=== PATIENT | female | born 1985 | race Caucasian/White ===

== ENCOUNTER 2016-11-12 22:18 | Emergency (ER) | payer SELFPAY ==
[~2016-11-12] VITALS: Ht 172.7 cm; Wt 105.0 kg
[~2016-11-12 22:18] MED LIST: AZIT250T3 PO; DIFL150T PO; FLUC150T PO; ONDA8TAB8 SL; PERC10TA27 PO; TRAM1CAP21 PO
[2016-11-12 22:32] VITALS: BP 125/81; PULSE 100; RESP 16; TEMP 98.3; O2SAT 99
[2016-11-12] MEDS ORDERED: DIAZEPAM 10 MG TAB PO ONE (23:30)
[2016-11-12] MEDS ORDERED: oxyCODONE/ACETAMINOPHEN 5 MG/325 MG TAB PO ONE (23:30)
[2016-11-12] MEDS ORDERED: DEXAMETHASONE SOD PHOS 20 MG/5 ML VIAL IM ONE (23:30)
[2016-11-12] MEDS ORDERED: DIAZEPAM 5 MG TAB PO ONE (23:45)
--- NOTE | 2016-11-12 23:53 | PD ---
HPI Chief Complaint: Musculoskeletal Complaint Time Seen by Provider: 23:16 Travel History International Travel<30 days: No Contact w/Intl Traveler<30days: No Traveled to known affect area: No History of Present Illness HPI Patient is a 31-year-old female who presents to emergency room with complaints of back pain. Patient reports that 4 days ago, she slipped and fell down a few stairs and then slipped down 14 stairs. Reports no loss of consciousness. Reports that she has been having pains to her low back. Denies pains to her head or neck, reports pains to her lower thoracic as well as lumbar spine. Patient reports that she did take some left over lortab 10mg she had from a previous injury. Reports "it hasn't helped me at all." Patient has been ambulating with normal gait. Denies saddle anesthesia. Patient denies incontinence or retention of urine or stool. PFSH Past Medical History Asthma: Yes ( CHILD) Blood Disorders: No Anxiety: Yes Depression: Yes Cancer: Yes (PRECANCEROUS CELLS ON CERVIX 2004- LEEP PROCEDURE ) Cardiovascular Problems: No Diminished Hearing: No Endocrine: No GERD: Yes Genitourinary: No Headaches: Yes Immune Disorder: No Implanted Vascular Access Dvce: No Musculoskeletal: Yes Neurologic: Yes Psychiatric: Yes Reproductive: No Respiratory: Yes Immunizations Current: Yes Migraines: Yes Ulcer: Yes PNEUMOCCOCAL Vaccine (Year): 2 ?: Unknown LMP: 11/09/16 Menopausal: No : 4 Para: 2 Miscarriage: 1 : 1 Ovarian Cysts: Yes Past Surgical History Section: Yes (X1) Gynecologic Surgery: Yes (LEEP done 05/2004-Cervical biopsy-2004) Oral Surgery: Yes (EXTRACTIONS 2004) Tonsillectomy: Yes Other Surgery: Yes (LEAP 2004) Family History Family Hypercholesterolemia: Yes (mother) Social History Alcohol Use: Yes (RARELY) Tobacco Use: Yes (1 PPD) Substance Use: No Allergies-Medications (Allergen,Severity, Reaction): Coded Allergies: Erythromycin (Verified Allergy, Severe, ANAPHALAXIS, 11/12/16) ALL MYCINS Levaquin (Verified Allergy, Severe, HIVES, ANAPHALAXIS, 11/12/16) Penicillin (Verified Allergy, Severe, ANAPHALAXIS, 11/12/16) ALL CILLINS Sulfa (Verified Allergy, Severe, ANAPHALAXIS, 11/12/16) Vancomycin (Verified Allergy, Severe, ANAPHALAXIS, 11/12/16) Aleve (Verified Adverse Reaction, Severe, GI UPSET, 11/12/16) Rifampin (Verified Adverse Reaction, Intermediate, VOMITS, 11/12/16) Reported Meds & Prescriptions Reported Meds & Active Scripts Active Ibuprofen 600 Mg Tab 600 Mg PO Q6H PRN Valium (Diazepam) 10 Mg Tab 10 Mg PO BID Percocet (Oxycodone-Acetaminophen) 5-325 mg Tab 1-2 Tab PO Q6H PRN Ondansetron Odt 8 Mg Tab 8 Mg SL Q8HR Percocet (Oxycodone-Acetaminophen) 10-325 mg Tab 1 Tab PO Q4H PRN Review of Systems General / Constitutional: No: Fever Eyes: No: Visual changes HENT: No: Headaches Cardiovascular: No: Chest Pain or Discomfort Respiratory: No: Shortness of Breath Gastrointestinal: No: Nausea, Vomiting, Abdominal Pain Genitourinary: No: Urgency, Frequency, Dysuria, Incontinence, Pelvic Pain Musculoskeletal: No: Pain (low back pain) Skin: No Rash Neurologic: No: Weakness Psychiatric: No: Depression Endocrine: No: Polydipsia Hematologic/Lymphatic: No: Easy Bruising Physical Exam Narrative GENERAL: Mild distress SKIN: Focused skin assessment warm/dry. HEAD: Atraumatic. Normocephalic. EYES: Pupils equal and round. No scleral icterus. No injection or drainage. ENT: No nasal bleeding or discharge. Mucous membranes pink and moist. NECK: Trachea midline. No JVD. CARDIOVASCULAR: Regular rate and rhythm. No murmur appreciated. RESPIRATORY: No accessory muscle use. Clear to auscultation. Breath sounds equal bilaterally. GASTROINTESTINAL: Abdomen soft, non-tender, nondistended. Hepatic and splenic margins not palpable. Patient with no saddle anesthesia MUSCULOSKELETAL: No obvious deformities. No clubbing. No cyanosis. No edema. Patient with no midline tenderness to cervical or thoracic or lumbar spine, patient with b/l paraspinal tenderness to lumbar spine. NEUROLOGICAL: Awake and alert. No obvious cranial nerve deficits. Motor grossly within normal limits. Normal speech. PSYCHIATRIC: Appropriate mood and affect; insight and judgment normal. Data Data Last Documented VS Vital Signs Date Time Temp Pulse Resp B/P Pulse Ox O2 Delivery O2 Flow Rate FiO2 11/12/16 22:32 98.3 100 16 125/81 99 Orders Spine, Thoracic-Ap/Lat/Sw(3vw) (11/12/16 ) Spine, Lumbar - Ltd (Ap & Lat) (11/12/16 ) Ed Urine Pregnancytest Poc (11/12/16 23:24) Dexamethasone Inj (Decadron Inj) (11/12/16 23:30) Oxycodone-Acetamin 5-325 Mg (Percocet (11/12/16 23:30) Diazepam (Valium) (11/12/16 23:45) [facility] Medical Decision Making Medical Screen Exam Complete: Yes Emergency Medical Condition: Yes Interpretation(s) Vital Signs Date Time Temp Pulse Resp B/P Pulse Ox O2 Delivery O2 Flow Rate FiO2 11/12/16 22:32 98.3 100 16 125/81 99 Differential Diagnosis Differential includes lumbar strain, lumbar fracture, muscle strain Narrative Course 31 year old female who presents to the ER for evaluation of low back pain s/p fall 4 days ago. Patient has been ambulating with normal gait, denies incontinence of urine or bowel. Xray of thoracic spine ordered as patient has lower thoracic pain, xray of lumbar spine ordered as patient has paraspinal lumbar tenderness. Last Impressions Lumbar Spine X-Ray 11/12/16 0000 Signed Impressions: Service Date/Time: Saturday, November 12, 2016 23:49 - CONCLUSION: Levoscoliosis without fracture. Jose Luis Barahona MD thoracic spine xray: dextroscoliosis without fx patient with no acute fx's, she will follow up with orthopedic surgery and will return to ER as needed Diagnosis Primary Impression: Back pain Qualified Code: M54.5 - Acute bilateral low back pain without sciatica Patient Instructions: Narcotic given in the ED, General Instructions Additional Instructions: Please follow up with orthopedic surgeon Return to ER as needed Please do not drive or operate heavy machinery while taking narcotic pain medications Med/Other Pt SpecificInfo: Prescription(s) given Scripts Diazepam (Valium)10 Mg Tab10 Mg PO BID #20 TAB Ref 0 Prov:Kaitlin Eaton DO 11/13/16 Oxycodone-Acetaminophen (Percocet)5-325 mg Tab1-2 Tab PO Q6H PRN (PAIN) #15 TAB Ref 0 Prov:Kaitlin Eaton DO 11/13/16 Disposition: 01 DISCHARGE HOME Condition: Stable Kaitlin Eaton DO Nov 12, 2016 23:53 Kaitlin Eaton DO Nov 12, 2016 23:53
[2016-11-13] MEDS ORDERED: IBUP-232 PO (00:09)
[2016-11-13] MEDS ORDERED: PERC5TAB12 PO (00:09)
[2016-11-13] MEDS ORDERED: DIAZ10 PO (00:09)
--- NOTE | 2016-11-13 00:20 | RADRPT ---
EXAM DATE/TIME: 11/12/2016 23:59 [facility] COMPARISON: No previous studies available for comparison. INDICATIONS : Thoracic spine pain post fall. MEDICAL HISTORY : None. SURGICAL HISTORY : None. ENCOUNTER: Initial ACUITY: 4 - 6 days PAIN SCORE: 10/10 LOCATION: Bilateral thoracic spine FINDINGS: There is normal alignment of the thoracic vertebral bodies. Vertebral body height is maintained. No evidence of fracture. Dextroscoliosis. Pedicles are intact at all levels. The paravertebral reflec tions are not thickened. CONCLUSION: Dextroscoliosis without fracture. Jose Luis Barahona MD on November 13, 2016 at 0:19 Board Certified Radiologist. This report was verified electronically.
--- NOTE | 2016-11-13 00:20 | RADRPT ---
EXAM DATE/TIME: 11/12/2016 23:49 [facility] COMPARISON: No previous studies available for comparison. INDICATIONS : Lumbar spine pain post fall. MEDICAL HISTORY : None. SURGICAL HISTORY : None. ENCOUNTER: Initial ACUITY: 4 - 6 days PAIN SCORE: 10/10 LOCATION: Bilateral lumbar spine FINDINGS: Two view examination was performed. There are five non-rib bearing vertebral bodies. The vertebral bodies are in normal alignment without evidence of subluxation. Levocurvature. The disc spaces are m aintained. The pedicles are intact. Bony mineralization is normal. No fracture is identified. CONCLUSION: Levoscoliosis without fracture. Jose Luis Barahona MD on November 13, 2016 at 0:18 Board Certified Radiologist. This report was verified electronically.
[2016-11-13 00:56] VITALS: BP 147/74
[2016-11-17] MEDS ORDERED: ONDA8TAB8 SL (23:35)
[2016-12-08] MEDS ORDERED: ONDA8TAB8 SL (19:05)
[2016-12-21] MEDS ORDERED: ONDA8TAB8 SL (23:25)
[2017-01-05] MEDS ORDERED: ONDA8TAB8 SL (00:11)
== END 2016-11-13 00:59 | disposition home or self-care (01) ==
LOC: PHED 22:18
DX: M54.5 Low back pain (principal); M54.6 Pain in thoracic spine; W10.9XXA Fall (on) (from) unspecified stairs and steps, initial encounter
CPT/HCPCS: 72072; 72100; 84703; 96372; 99284; J1100

== ENCOUNTER 2017-04-10 16:05 | Emergency (ER) | payer SELFPAY ==
[~2017-04-10] VITALS: Ht 172.7 cm; Wt 105.6 kg
[~2017-04-10 16:05] MED LIST changes: -AZIT250T3 PO; +DIAZ10 PO; -DIFL150T PO; -FLUC150T PO; -ONDA8TAB8 SL; +PERC5TAB12 PO; -TRAM1CAP21 PO
[2017-04-10 16:08] VITALS: BP 121/59; PULSE 88; RESP 16; TEMP 97.8; O2SAT 100
[2017-04-10 16:30] VITALS: RESP 16; O2SAT 99
[2017-04-10] MEDS ORDERED: ZOFR8TAB PO (16:33)
--- NOTE | 2017-04-10 16:54 | PD ---
HPI Chief Complaint: Related Problem Time Seen by Provider: 16:13 Travel History International Travel<30 days: No Contact w/Intl Traveler<30days: No Traveled to known affect area: No History of Present Illness HPI This is a 31-year-old female who presents to the emergency department with bleeding and abdominal cramping in early . She's not sure how she is. Her last normal period was in January. She reports that for 3 days she's had intermittent cramping, moderate severity, worse at the left side of nonradiating associated with dark brown vaginal bleeding less than filling a pad. She had one miscarriage when she was 17 years old and she has 2 children. She denies any fevers or chills and denies any dysuria or vaginal discharge. PFSH Past Medical History Asthma: Yes ( CHILD) Blood Disorders: No Anxiety: Yes Depression: Yes Cancer: Yes (PRECANCEROUS CELLS ON CERVIX 2004- LEEP PROCEDURE ) Cardiovascular Problems: No Diminished Hearing: No Endocrine: No GERD: Yes Genitourinary: No Headaches: Yes Immune Disorder: No Implanted Vascular Access Dvce: No Medical other: Yes (interm. chronic left knee pain) Musculoskeletal: Yes Neurologic: Yes Psychiatric: Yes Reproductive: No Respiratory: Yes Immunizations Current: Yes Migraines: Yes Ulcer: Yes Tetanus Vaccination: > 5 Years Influenza Vaccination: No PNEUMOCCOCAL Vaccine (Year): 2 ?: LMP: 01/27//?? Menopausal: No : 4 Para: 2 Miscarriage: 1 : 1 Ovarian Cysts: Yes Past Surgical History Section: Yes (X1) Gynecologic Surgery: Yes (LEEP done 05/2004-Cervical biopsy-2004) Oral Surgery: Yes (EXTRACTIONS 2004) Tonsillectomy: Yes Other Surgery: Yes (LEAP 2004) Family History Family Hypercholesterolemia: Yes (mother) Social History Alcohol Use: No Tobacco Use: Yes ( -04/05 PPD) Substance Use: No Allergies-Medications (Allergen,Severity, Reaction): Coded Allergies: Sulfa (Sulfonamide Antibiotics) (Unverified Allergy, Severe, ANAPHALAXIS, 04/10/17) erythromycin base (Unverified Allergy, Severe, ANAPHALAXIS, 04/10/17) ALL MYCINS levofloxacin (Unverified Allergy, Severe, HIVES, ANAPHALAXIS, 04/10/17) penicillin G (Unverified Allergy, Severe, ANAPHALAXIS, 04/10/17) ALL CILLINS vancomycin (Unverified Allergy, Severe, ANAPHALAXIS, 04/10/17) naproxen (Unverified Adverse Reaction, Severe, GI UPSET, 04/10/17) rifampin (Unverified Adverse Reaction, Intermediate, VOMITS, 04/10/17) Reported Meds & Prescriptions Reported Meds & Active Scripts Active Percocet (Oxycodone-Acetaminophen) 10-325 mg Tab 1 Tab PO Q4H PRN Reported Zofran (Ondansetron HCl) 8 Mg Tab 8 Mg PO Q6HR PRN Review of Systems Except as stated in HPI: all other systems reviewed are Neg Physical Exam Narrative GENERAL:Well appearing, no acute distress SKIN: Focused skin assessment warm and dry. HEAD: Atraumatic. Normocephalic. EYES: Pupils equal and round. No injection or drainage. ENT: Moist mucous membranes NECK: Trachea midline. CARDIOVASCULAR: Regular rate and rhythm. No murmur appreciated. RESPIRATORY: Clear to auscultation. Breath sounds equal bilaterally. GASTROINTESTINAL: Abdomen soft, non-tender, nondistended. WHEAT WASHER: scant dark blood in the vaginal vault, no adnexal tenderness or cervical motion tenderness MUSCULOSKELETAL: No obvious deformities. NEUROLOGICAL: Awake and alert. No obvious cranial nerve deficits. Moving all extremities. PSYCHIATRIC: Appropriate mood and affect; insight and judgment normal. Data Data Last Documented VS Vital Signs Date Time Temp Pulse Resp B/P (MAP) Pulse Ox O2 Delivery O2 Flow Rate FiO2 04/10/17 19:25 78 16 112/59 (76) 100 Room Air 04/10/17 16:08 97.8 Orders Orders Ed Poc Ultrasound (04/10/17 ) Beta Hcg (Quant/Titer) (04/10/17 16:47) Complete Blood Count With Diff (04/10/17 16:47) Comprehensive Metabolic Panel (04/10/17 16:47) Urinalysis - C+S If Indicated (04/10/17 16:47) Iv Access Insert/Monitor (04/10/17 16:47) Ecg Monitoring (04/10/17 16:47) Oximetry (04/10/17 16:47) Ondansetron Inj (Zofran Inj) (04/10/17 17:00) Sodium Chloride 0.9% Flush (Ns Flush) (04/10/17 17:00) Morphine Inj (Morphine Inj) (04/10/17 17:00) Us Pelvis Preg W Transvaginal (04/10/17 ) Ed Urine Pregnancytest Poc (04/10/17 17:15) Morphine Inj (Morphine Inj) (04/10/17 18:30) Labs Laboratory Tests Test 04/10/17 17:05 04/10/17 17:10 Urine Collection Type CLEAN CATCH Urine Color YELLOW Urine Turbidity CLEAR Urine pH 6.0 Urine Specific [place] 1.010 Urine Protein NEG mg/dL Urine Glucose (UA) NEG mg/dL Urine Ketones NEG mg/dL Urine Occult Blood NEG Urine Nitrite NEG Urine Bilirubin NEG Urine Leukocyte Esterase NEG Urine Squamous Epithelial Cells 0-5 /hpf Urine Transitional Epithelial Cells 0-5 /hpf Urine Amorphous Sediment FEW Microscopic Urinalysis Comment CULT NOT INDICATED Urine Collection Time 1705 White Blood Count 9.4 TH/MM3 Red Blood Count 4.56 MIL/MM3 Hemoglobin 8.9 GM/DL Hematocrit 29.4 % Mean Corpuscular Volume 64.4 FL Mean Corpuscular Hemoglobin 19.5 PG Mean Corpuscular Hemoglobin Concent 30.3 % Red Cell Distribution Width 17.9 % Platelet Count 388 TH/MM3 Mean Platelet Volume 7.9 FL Neutrophils (%) (Auto) 51.4 % Lymphocytes (%) (Auto) 40.8 % Monocytes (%) (Auto) 6.8 % Eosinophils (%) (Auto) 0.5 % Basophils (%) (Auto) 0.5 % Neutrophils # (Auto) 4.9 TH/MM3 Lymphocytes # (Auto) 3.9 TH/MM3 Monocytes # (Auto) 0.6 TH/MM3 Eosinophils # (Auto) 0.0 TH/MM3 Basophils # (Auto) 0.0 TH/MM3 CBC Comment AUTO DIFF Differential Comment AUTO DIFF CONFIRMED Platelet Estimate NORMAL Platelet Morphology Comment NORMAL Ovalocytes 1+ Barron Cells 1+ Rouleau PRESENT Keratocytes OCC Blood Urea Nitrogen 7 MG/DL Creatinine 0.72 MG/DL Random Glucose 85 MG/DL Total Protein 7.8 GM/DL Albumin 3.8 GM/DL Calcium Level 8.4 MG/DL Alkaline Phosphatase 74 U/L Aspartate Amino Transf (AST/SGOT) 14 U/L Alanine Aminotransferase (ALT/SGPT) 16 U/L Total Bilirubin 0.3 MG/DL Sodium Level 137 MEQ/L Potassium Level 3.3 MEQ/L Chloride Level 103 MEQ/L Carbon Dioxide Level 26.7 MEQ/L Anion Gap 7 MEQ/L Estimat Glomerular Filtration Rate 94 ML/MIN Human Chorionic Gonadotropin, Quant 8943 MIU/ML MDM Medical Decision Making Medical Screen Exam Complete: Yes Emergency Medical Condition: Yes Interpretation(s) Afebrile, no tachycardia, normotensive Hemoglobin is 8.9 Hypokalemia HCG is 8943 Urinalysis is negative for infection Last 24 hours Impressions Pelvis Ultrasound 04/10/17 0000 Signed Impressions: Service Date/Time: Monday, April 10, 2017 22:29 - CONCLUSION: 1. Intrauterine gestational sac containing a yolk sac. 2. Complex mass in the right ovary; possible corpus luteal cyst. Short-term followup recommended. 3. Normal left ovary and adnexa. Edison Pantoja MD Differential Diagnosis Threatened miscarriage, incomplete miscarriage, completed miscarriage, ectopic Narrative Course This is a 31-year-old female who presents to the emergency department with abdominal discomfort and dark blood from her vagina the setting of early . She is placed in a monitor and an IV was established. She is found to be anemic which is likely chronic. HCG is 8000. Ultrasound demonstrates an intrauterine approximately 5 weeks gestation with a 4 cm right adnexal mass with no evidence of torsion. Pt is Rh + per past records. Patient was given pain control and feels a little bit better. I think she can be discharged to follow-up with her process server. I counseled her this may still reflect an early miscarriage. Diagnosis Primary Impression: Threatened miscarriage Patient Instructions: General Instructions Additional Instructions: You have been diagnosed with a threatened miscarriage. Many women who have vaginal bleeding in early go on to have normal pregnancies. However some women that have vaginal bleeding will have a miscarriage and it is important to followup with your cobol mainframe developer. If you develop severe abdominal pain, fever, persistent vomiting or inability to eat, heavy vaginal bleeding using more than one pad an hour, lightheadedness , dizziness, chest pain or shortness of breath return to the emergency department immediately. Followup with your cobol mainframe developer as soon as possible. Take Tylenol as needed for pain. You have a 4 cm mass on your right ovary which should be followed by your process server. Med/Other Pt SpecificInfo: Prescription(s) given Scripts Pnv No.111/Iron/Folate/Dha (Nestabs One Softgel) 38 Mg Iron-1 Mg-225 Mg Capsule 1 TAB PO DAILY, #30 Prov: Niecy Mendenhall MD 04/10/17 Ondansetron Odt (Zofran Odt) 4 Mg Tab 4 MG SL Q6HR Y for Nausea/Vomiting, #15 TAB 0 Refills Prov: Niecy Mendenhall MD 04/10/17 Disposition: 01 DISCHARGE HOME Condition: Stable Niecy Mendenhall MD Apr 10, 2017 16:54
[2017-04-10] MEDS ORDERED: ONDANSETRON HCL 4 MG/2 ML VIAL IVP ONE (17:00)
[2017-04-10] MEDS ORDERED: MORPHINE SULFATE 2 MG/ML INJ IV PUSH ONE ×2 (17:00→18:30)
[2017-04-10] MEDS: SODIUM CHLORIDE 0.9% FLUSH 10 ML FLUSH IV FLUSH PRN ×2 (17:22→18:34)
[2017-04-10 17:29] VITALS: BP 107/62; PULSE 89; RESP 16; O2SAT 99
[2017-04-10 17:39] LABS: AUTOMATED NEUTROPHIL # 4.9 TH/MM3 (1.8-7.7); BASOPHIL % 0.5 % (0.0-2.0); CHLORIDE 103 MEQ/L (98-107); EOSINOPHIL % 0.5 % (0.0-4.0); HEMATOCRIT 29.4 % (35.0-46.0); HEMOGLOBIN 8.9 GM/DL (11.6-15.3); LYMPH % 40.8 % (9.0-44.0); LYMPHOCYTE # 3.9 TH/MM3 (1.0-4.8); MEAN CELL VOLUME 64.4 FL (80.0-100.0); MEAN CORPUSCULAR HEMOGLOBIN 19.5 PG (27.0-34.0); MEAN CORPUSCULAR HGB CONC 30.3 % (32.0-36.0); MEAN PLATELET VOLUME 7.9 FL (7.0-11.0); MONO % 6.8 % (0.0-8.0); MONOCYTE # 0.6 TH/MM3 (0-0.9); NEUT % 51.4 % (16.0-70.0); PLATELET COUNT 388 TH/MM3 (150-450); RED BLOOD COUNT 4.56 MIL/MM3 (4.00-5.30); RED CELL DISTRIBUTION WIDTH 17.9 % (11.6-17.2); SODIUM (NA) 137 MEQ/L (136-145); WHITE BLOOD COUNT 9.4 TH/MM3 (4.0-11.0)
[2017-04-10 17:41] LABS: BILIRUBIN, URINE NEG (NEG); BLOOD, URINE NEG (NEG); GLUCOSE,URINE NEG (NEG); KETONE, URINE NEG (NEG); NITRITE,URINE NEG (NEG); URINE LEUKOCYTE ESTERASE NEG (NEG)
[2017-04-10 17:42] LABS: CALCIUM 8.4 MG/DL (8.5-10.1)
[2017-04-10 17:43] LABS: ALBUMIN 3.8 GM/DL (3.4-5.0); BICARBONATE 26.7 MEQ/L (21.0-32.0); BLOOD UREA NITROGEN 7 MG/DL (7-18); GLUCOSE,RANDOM 85 MG/DL (74-106)
[2017-04-10 17:45] LABS: URINE COLOR YELLOW (YELLW/STRAW)
[2017-04-10 17:46] LABS: ALT (GPT) 16 U/L (10-53); AST (GOT) 14 U/L (15-37); CREATININE 0.72 MG/DL (0.50-1.00); GLOMERULAR FILTRATION RATE 94 ML/MIN (>89)
[2017-04-10 17:46] LABS: AMORPHOUS SEDIMENT, URINE FEW; SQUAMOUS EPITHELIAL CELL URINE 0-5 /hpf (0-5); TRANSITIONAL EPI CELLS, URINE 0-5 /hpf
[2017-04-10 17:47] LABS: TOTAL BILIRUBIN ADULT 0.3 MG/DL (0.2-1.0)
[2017-04-10 17:48] LABS: TOTAL PROTEIN 7.8 GM/DL (6.4-8.2)
[2017-04-10 17:49] LABS: ALKALINE PHOSPHATASE 74 U/L (45-117)
[2017-04-10 18:02] LABS: BURR CELLS 1+ (NORMAL); KERATOCYTES OCC (NORMAL); OVALOCYTES 1+ (NORMAL)
[2017-04-10 18:03] LABS: ROULEAUX PRESENT (NORMAL)
--- NOTE | 2017-04-10 18:33 | RADRPT ---
EXAM DATE/TIME: 04/10/2017 22:29 [facility] COMPARISON: No previous studies available for comparison. INDICATIONS : Bleeding with . LAB(S): [facility] MEDICAL HISTORY : Gastroesophageal reflux disease. SURGICAL HISTORY : Tonsillectomy. section. LEEP. Cervical biopsy. ENCOUNTER: Initial ACUITY: 3 days PAIN SCORE: 0/10 LOCATION: Bilateral pelvis MEASUREMENTS: UTERUS: 9.5 x 6.7 x 6.1 cm ENDOMETRIAL STRIPE: >20 mm RIGHT OVARY: 4.5 x 3.8 x 2.9 cm LEFT OVARY: 2.4 x 2.1 x 1.4 cm FREE FLUID: Yes CROWN RUMP LENGTH: not seen = WKS DAYS FHR: not seen BPM FINDINGS: UTERUS: A gestational sac measuring 1.04 cm consistent with a gestational age of 5 weeks and one day is noted . No sac is identified. pole could not be identified. RIGHT OVARY: A complex mass which may represent a cyst with internal debris is identified in the right adnexa [place] on. It measures 3 x 2.5 x 2.5 cm in size. LEFT OVARY: Ovary contains no mass or significant cystic lesion. MISCELLANEOUS: Small amount of free fluid. CONCLUSION: 1. Intrauterine gestational sac containing a yolk sac. 2. Complex mass in the right ovary; possible corpus luteal cyst. Short-term followup recommended. 3. Normal left ovary and adnexa. Edison Pantoja MD on April 10, 2017 at 18:26 Board Certified Radiologist. This report was verified electronically.
[2017-04-10 19:25] VITALS: BP 112/59; PULSE 78; RESP 16; O2SAT 100
[2017-04-10] MEDS ORDERED: PNV1CAPS PO (19:53)
[2017-04-10] MEDS ORDERED: ZOFR4TAB3 SL (19:53)
[2017-04-10 20:07] VITALS: BP 105/77
== END 2017-04-10 20:26 | disposition home or self-care (01) ==
LOC: PHED 16:05
DX: O20.0 Threatened abortion (principal); E87.6 Hypokalemia; F41.8 Other specified anxiety disorders; F17.210 Nicotine dependence, cigarettes, uncomplicated; Z3A.01 Less than 8 weeks gestation of pregnancy
CPT/HCPCS: 76801; 76817; 80053; 81001; 84702; 84703; 85025; 96374; 96375; 96376; 99284; J2270; J2405

== ENCOUNTER 2017-04-17 16:02 | Emergency (ER) | payer SELFPAY ==
[~2017-04-17 16:02] MED LIST changes: -DIAZ10 PO; -PERC5TAB12 PO; +PNV1CAPS PO; +ZOFR4TAB3 SL; +ZOFR8TAB PO
[2017-04-17 16:05] VITALS: BP 130/69; PULSE 115; RESP 16; TEMP 97.9; O2SAT 100
--- NOTE | 2017-04-17 16:17 | PD ---
HPI Chief Complaint: Related Problem Time Seen by Provider: 16:15 Travel History International Travel<30 days: No Contact w/Intl Traveler<30days: No Traveled to known affect area: No History of Present Illness HPI 31yo F, , presented to the ED with abdominal cramping and bleeding. She states that about an hour ago she started bleeding with some clots. She quantifies the blood to about 2pads in less than an hour. Pt was seen last week for abdominal cramping. Abdominal US confirmed a gestational sac consistent with a 5wk within the uterus and a 4cm mass on R ovary. Pt is Rh positive. Pt denies any vomiting, fevers, myalgias, weakness or lightheadedness. Modifying Factors: None Associated Signs & Symptoms: , vaginal bleeding Risk Factors: Seen last week for threatened AB, 5 weeks PFSH Past Medical History Asthma: Yes ( CHILD) Blood Disorders: No Anxiety: Yes Depression: Yes Cancer: Yes (PRECANCEROUS CELLS ON CERVIX 2004- LEEP PROCEDURE ) Cardiovascular Problems: No Diminished Hearing: No Endocrine: No GERD: Yes Genitourinary: No Headaches: Yes Immune Disorder: No Implanted Vascular Access Dvce: No Musculoskeletal: Yes Neurologic: Yes Psychiatric: Yes Reproductive: No Respiratory: Yes Immunizations Current: Yes Migraines: Yes Ulcer: Yes PNEUMOCCOCAL Vaccine (Year): 2 ?: LMP: 03/02/17 Menopausal: No : 4 Para: 2 Miscarriage: 1 : 1 Ovarian Cysts: Yes Past Surgical History Section: Yes (X1) Gynecologic Surgery: Yes (LEEP done 05/2004-Cervical biopsy-2004) Oral Surgery: Yes (EXTRACTIONS 2004) Tonsillectomy: Yes Other Surgery: Yes (LEAP 2004) Family History Family Hypercholesterolemia: Yes (mother) Social History Alcohol Use: No Tobacco Use: Yes ( -04/05 PPD) Substance Use: No Allergies-Medications (Allergen,Severity, Reaction): Coded Allergies: Sulfa (Sulfonamide Antibiotics) (Unverified Allergy, Severe, ANAPHALAXIS, 04/17/17) erythromycin base (Unverified Allergy, Severe, ANAPHALAXIS, 04/17/17) ALL MYCINS levofloxacin (Unverified Allergy, Severe, HIVES, ANAPHALAXIS, 04/17/17) penicillin G (Unverified Allergy, Severe, ANAPHALAXIS, 04/17/17) ALL CILLINS vancomycin (Unverified Allergy, Severe, ANAPHALAXIS, 04/17/17) naproxen (Unverified Adverse Reaction, Severe, GI UPSET, 04/17/17) rifampin (Unverified Adverse Reaction, Intermediate, VOMITS, 04/17/17) Reported Meds & Prescriptions Reported Meds & Active Scripts Active Nestabs One Softgel (Pnv No.111/Iron/Folate/Dha) 38 Mg Iron-1 Mg-225 Mg Capsule 1 Tab PO DAILY Zofran Odt (Ondansetron Odt) 4 Mg Tab 4 Mg SL Q6HR PRN Percocet (Oxycodone-Acetaminophen) 10-325 mg Tab 1 Tab PO Q4H PRN Reported Zofran (Ondansetron HCl) 8 Mg Tab 8 Mg PO Q6HR PRN Review of Systems Except as stated in HPI: all other systems reviewed are Neg Physical Exam Narrative GENERAL: Well-developed young female patient currently in moderate distress. Awake and oriented 3. SKIN: Focused skin assessment warm/dry. HEAD: Atraumatic. Normocephalic. EYES: Pupils equal and round. No scleral icterus. No injection or drainage. ENT: No nasal bleeding or discharge. Mucous membranes pink and moist. NECK: Trachea midline. No JVD. CARDIOVASCULAR: Regular rate and rhythm. No murmur appreciated. RESPIRATORY: No accessory muscle use. Clear to auscultation. Breath sounds equal bilaterally. GASTROINTESTINAL: Abdomen soft, pelvic tenderness without guarding or rebound, nondistended. Hepatic and splenic margins not palpable. GENITOURINARY: Normal external genitalia without lesions or erythema. Vaginal vault with small amount of blood but no drainage drainage. Cervical os was closed without drainage. No cervical motion tenderness. Uterus nontender. Bilateral adnexa nontender without masses. MUSCULOSKELETAL: No obvious deformities. No clubbing. No cyanosis. No edema. NEUROLOGICAL: Awake and alert. No obvious cranial nerve deficits. Motor grossly within normal limits. Normal speech. PSYCHIATRIC: Appropriate mood and affect; insight and judgment normal. Data Data Last Documented VS Vital Signs Date Time Temp Pulse Resp B/P (MAP) Pulse Ox O2 Delivery O2 Flow Rate FiO2 04/17/17 19:05 97 20 101/49 (66) 100 Room Air 04/17/17 16:05 97.9 Orders Orders Beta Hcg (Quant/Titer) (04/17/17 16:11) Complete Blood Count With Diff (04/17/17 16:11) Basic Metabolic Panel (Bmp) (04/17/17 16:11) Urinalysis - C+S If Indicated (04/17/17 16:11) Type And Screen (04/17/17 16:15) Sodium Chlor 0.9% 1000 Ml Inj (Ns 1000 M (04/17/17 16:30) Morphine Inj (Morphine Inj) (04/17/17 16:45) Ondansetron Inj (Zofran Inj) (04/17/17 16:45) Morphine Inj (Morphine Inj) (04/17/17 18:15) Us Pelvis (Ques Pr/Ect)W Trans (04/17/17 17:06) Ed Discharge Order (04/17/17 19:15) Labs Laboratory Tests Test 04/17/17 16:20 04/17/17 16:35 White Blood Count 6.2 TH/MM3 Red Blood Count 4.28 MIL/MM3 Hemoglobin 8.3 GM/DL Hematocrit 27.4 % Mean Corpuscular Volume 64.1 FL Mean Corpuscular Hemoglobin 19.4 PG Mean Corpuscular Hemoglobin Concent 30.3 % Red Cell Distribution Width 17.3 % Platelet Count 276 TH/MM3 Mean Platelet Volume 7.6 FL Neutrophils (%) (Auto) 76.6 % Lymphocytes (%) (Auto) 13.3 % Monocytes (%) (Auto) 8.6 % Eosinophils (%) (Auto) 0.7 % Basophils (%) (Auto) 0.8 % Neutrophils # (Auto) 4.9 TH/MM3 Lymphocytes # (Auto) 0.8 TH/MM3 Monocytes # (Auto) 0.5 TH/MM3 Eosinophils # (Auto) 0.0 TH/MM3 Basophils # (Auto) 0.0 TH/MM3 CBC Comment AUTO DIFF Differential Comment AUTO DIFF CONFIRMED Ovalocytes 1+ Blood Urea Nitrogen 6 MG/DL Creatinine 0.74 MG/DL Random Glucose 88 MG/DL Calcium Level 7.9 MG/DL Sodium Level 133 MEQ/L Potassium Level 3.7 MEQ/L Chloride Level 103 MEQ/L Carbon Dioxide Level 23.6 MEQ/L Anion Gap 6 MEQ/L Estimat Glomerular Filtration Rate 92 ML/MIN Human Chorionic Gonadotropin, Quant [id number] MIU/ML Urine Collection Type CLEAN CATCH Urine Color YELLOW Urine Turbidity SLIGHT Urine pH 6.0 Urine Specific [place] 1.025 Urine Protein TRACE mg/dL Urine Glucose (UA) NEG mg/dL Urine Ketones NEG mg/dL Urine Occult Blood LARGE Urine Nitrite NEG Urine Bilirubin NEG Urine Leukocyte Esterase NEG Urine RBC 100-200 /hpf Urine WBC 6-8 /hpf Urine Squamous Epithelial Cells 6-8 /hpf Microscopic Urinalysis Comment CULT NOT INDICATED Urine Collection Time 16:35 [facility] Medical Decision Making Medical Screen Exam Complete: Yes Emergency Medical Condition: Yes Medical Record Reviewed: Yes Interpretation(s) Laboratory Tests Test 04/17/17 16:20 04/17/17 16:35 Hemoglobin 8.3 GM/DL (11.6-15.3) Hematocrit 27.4 % (35.0-46.0) Mean Corpuscular Volume 64.1 FL (80.0-100.0) Mean Corpuscular Hemoglobin 19.4 PG (27.0-34.0) Mean Corpuscular Hemoglobin Concent 30.3 % (32.0-36.0) Red Cell Distribution Width 17.3 % (11.6-17.2) Neutrophils (%) (Auto) 76.6 % (16.0-70.0) Monocytes (%) (Auto) 8.6 % (0.0-8.0) Lymphocytes # (Auto) 0.8 TH/MM3 (1.0-4.8) Ovalocytes 1+ (NORMAL) Blood Urea Nitrogen 6 MG/DL (7-18) Calcium Level 7.9 MG/DL (8.5-10.1) Sodium Level 133 MEQ/L (136-145) Human Chorionic Gonadotropin, Quant [id number] MIU/ML (0-5) Urine Occult Blood LARGE (NEG) Urine RBC 100-200 /hpf (0-3) Urine WBC 6-8 /hpf (0-5) Urine Squamous Epithelial Cells 6-8 /hpf (0-5) Last 24 hours Impressions Pelvis Ultrasound 04/17/17 1706 Signed Impressions: Service Date/Time: Monday, April 17, 2017 17:48 - CONCLUSION: 1. A single, viable intrauterine with a subchorionic hemorrhage. Please see above. 2. The echogenic area of the right ovary is unchanged, possibly a corpus luteal cyst. It is not typical [place] ectopic. 3. Left ovary not well seen today. No evidence of a left adnexal mass and the left ovary appeared normal last week. 4. Trace simple appearing free fluid in the pelvic cul-de-sac, nonspecific but generally a physiologic amount. Stewart Francisco MD Differential Diagnosis Threatened AB versus spontaneous AB Narrative Course Pelvic exam shows a small amount of blood at this time. Cervical os is closed. HCG is coming up appropriate for stage. Ultrasound does show IUP. Patient had been given IV fluids, pain medication and nausea medication in the ER. She is Rh+. At this point, my plan would be to release her with follow-up to [facility] [employer] in a few days. Return for any worsening in bleeding, pain, and as needed. The plan was discussed with her and she states understanding. In addition, she also does have a UTI which I plan to treat. Diagnosis Primary Impression: Threatened Additional Impression: UTI (urinary tract infection) Med/Other Pt SpecificInfo: Prescription(s) given Scripts Ondansetron Odt (Zofran Odt) 4 Mg Tab 4 MG SL Q6HR Y for Nausea/Vomiting, #7 TAB 0 Refills Prov: Lara Stuart MD 04/17/17 Nitrofurantoin Monohydrate Macrocrystals (Macrobid) 100 Mg Cap 100 MG PO BID for Infection for 7 Days, #14 CAP 0 Refills Prov: Lara Stuart MD 04/17/17 Disposition: 01 DISCHARGE HOME Condition: Stable Lara Stuart MD Apr 17, 2017 16:17
[2017-04-17 16:26] LABS: AUTOMATED NEUTROPHIL # 4.9 TH/MM3 (1.8-7.7); BASOPHIL % 0.8 % (0.0-2.0); EOSINOPHIL % 0.7 % (0.0-4.0); HEMATOCRIT 27.4 % (35.0-46.0); HEMOGLOBIN 8.3 GM/DL (11.6-15.3); LYMPH % 13.3 % (9.0-44.0); LYMPHOCYTE # 0.8 TH/MM3 (1.0-4.8); MEAN CELL VOLUME 64.1 FL (80.0-100.0); MEAN CORPUSCULAR HEMOGLOBIN 19.4 PG (27.0-34.0); MEAN CORPUSCULAR HGB CONC 30.3 % (32.0-36.0); MEAN PLATELET VOLUME 7.6 FL (7.0-11.0); MONO % 8.6 % (0.0-8.0); MONOCYTE # 0.5 TH/MM3 (0-0.9); NEUT % 76.6 % (16.0-70.0); PLATELET COUNT 276 TH/MM3 (150-450); RED BLOOD COUNT 4.28 MIL/MM3 (4.00-5.30); RED CELL DISTRIBUTION WIDTH 17.3 % (11.6-17.2); WHITE BLOOD COUNT 6.2 TH/MM3 (4.0-11.0)
[2017-04-17] MEDS ORDERED: SODIUM CHLOR 0.9% 1000 ML INJ 1,000 ML IV ONE (16:30)
[2017-04-17 16:36] LABS: CALCIUM 7.9 MG/DL (8.5-10.1)
[2017-04-17 16:37] LABS: BICARBONATE 23.6 MEQ/L (21.0-32.0)
[2017-04-17 16:41] LABS: CREATININE 0.74 MG/DL (0.50-1.00)
[2017-04-17] MEDS ORDERED: ONDANSETRON HCL 4 MG/2 ML VIAL IV PUSH ONE (16:45)
[2017-04-17] MEDS ORDERED: MORPHINE SULFATE 2 MG/ML INJ IV PUSH ONE ×2 (16:45→18:15)
[2017-04-17 16:46] LABS: BILIRUBIN, URINE NEG (NEG); BLOOD, URINE LARGE (NEG); GLUCOSE,URINE NEG (NEG); KETONE, URINE NEG (NEG); NITRITE,URINE NEG (NEG); URINE LEUKOCYTE ESTERASE NEG (NEG)
[2017-04-17 16:48] VITALS: BP 144/70; PULSE 95; RESP 20; O2SAT 100
[2017-04-17 16:50] LABS: URINE COLOR YELLOW (YELLW/STRAW)
[2017-04-17 16:51] LABS: RBC, URINE 100-200 /hpf (0-3)
[2017-04-17 17:06] LABS: OVALOCYTES 1+ (NORMAL)
[2017-04-17 18:08] VITALS: BP 107/58; PULSE 102; RESP 20; O2SAT 100
--- NOTE | 2017-04-17 18:41 | RADRPT ---
EXAM DATE/TIME: 04/17/2017 17:48 [facility] COMPARISON: US PELVIS, PREG, W/TRANSVAGINAL, April 10, 2017, 22:29. INDICATIONS : Bleeding. LAB(S): Beta-hCG: MEDICAL HISTORY : . Gastroesophageal reflux disease. SURGICAL HISTORY : Tonsillectomy. section. LEEP. Cervical biopsy. ENCOUNTER: Subsequent ACUITY: 2 weeks PAIN SCORE: 8/10 LOCATION: Bilateral pelvis MEASUREMENTS: UTERUS: 10.1 x 8.3 x 6.1 cm ENDOMETRIAL STRIPE: 14 mm RIGHT OVARY: 5.1 x 2.2 x 3.1 cm LEFT OVARY: not seen FREE FLUID: Yes CROWN RUMP LENGTH: 0.84 cm = 6 WKS 5 DAYS FHR: BPM FINDINGS: UTERUS: Gestational sac yolk sac and pole are again noted in the uterine cavity. [place]-rump length is a pproximately 8.4 mm corresponding to a gestational age of 6 weeks, 5 days. Complex collection in now seen adjacent to the gestational sac, 3.4 x 3.8 x 2.7 cm and would be compatible with a subchorionic hemorrhage. heart tones are demonstrated. RIGHT OVARY: Echogenic area measuring 3.2 x 1.8 x 2.0 cm again noted of the right ovary, similar in size accountin g for potential differences in technique/measurement. LEFT OVARY: Not well seen today but was normal on the comparison. MISCELLANEOUS: Trace free fluid. CONCLUSION: 1. A single, viable intrauterine with a subchorionic hemorrhage. Please see above. 2. The echogenic area of the right ovary is unchanged, possibly a corpus luteal cyst. It is not typic al Baxter ectopic. 3. Left ovary not well seen today. No evidence of a left adnexal mass and the left ovary appeared nor mal last week. 4. Trace simple appearing free fluid in the pelvic cul-de-sac, nonspecific but generally a physiologi c amount. Stewart Francisco MD on April 17, 2017 at 18:33 Board Certified Radiologist. This report was verified electronically.
[2017-04-17 19:05] VITALS: BP_SYST 101; BP_SYST 11; BP_SYST 111; BP_DIAS 49; BP_DIAS 66; PULSE 108; PULSE 97; RESP 20; O2SAT 100; O2SAT 99
[2017-04-17] MEDS ORDERED: ZOFR4TAB3 SL (19:24)
[2017-04-17] MEDS ORDERED: MACR100C2 PO (19:24)
== END 2017-04-17 19:54 | disposition home or self-care (01) ==
LOC: PHED 16:02
DX: O20.0 Threatened abortion (principal); N39.0 Urinary tract infection, site not specified; R11.2 Nausea with vomiting, unspecified; F17.210 Nicotine dependence, cigarettes, uncomplicated; K21.9 Gastro-esophageal reflux disease without esophagitis; F41.8 Other specified anxiety disorders; Z3A.01 Less than 8 weeks gestation of pregnancy
CPT/HCPCS: 76700; 76817; 80048; 81001; 84702; 85025; 86850; 86900; 86901; 96361; 96374; 96375; 96376; 99285; J2270; J2405; J7030

== ENCOUNTER 2017-07-20 20:49 | Emergency (ER) | payer SELFPAY ==
[~2017-07-20] VITALS: Ht 172.7 cm; Wt 100.8 kg
[~2017-07-20 20:49] MED LIST changes: +MACR100C2 PO
[2017-07-20 20:59] VITALS: BP 133/68; PULSE 107; RESP 22; TEMP 98.8; O2SAT 100
[2017-07-20] MEDS ORDERED: SODIUM CHLOR 0.9% 1000 ML INJ 1,000 ML IV SCH (21:31)
--- NOTE | 2017-07-20 21:31 | PD ---
HPI Chief Complaint: Abdominal Pain Time Seen by Provider: 21:25 Travel History International Travel<30 days: No Contact w/Intl Traveler<30days: No Traveled to known affect area: No History of Present Illness HPI The patient is a 31-year-old female who presents to the emergency department for abdominal pain. The patient states her abdominal pain started 3 days ago, increased in intensity approximately 3 hours prior to arrival. The abdominal pain is located in the right lower quadrant. The abdominal pain radiates to the low back and buttocks, associated mild nausea, but there is no vomiting. The patient states her initial pain started 3 days ago when she started her menstrual cycle. She is unsure if there is any vaginal discharge but denies any dysuria, frequency, or urgency. The patient is a with history of section. She does have a history of ovarian cyst in the past with similar symptoms. She denies any history of known gallbladder disorders, appendicitis, or pancreatitis. The patient took ibuprofen earlier today for pain relief. Symptoms are moderate. She denies any fever, chills, or sweats. PFSH Past Medical History Asthma: Yes ( CHILD) Blood Disorders: No Anxiety: Yes Depression: Yes Cancer: Yes (PRECANCEROUS CELLS ON CERVIX 2004- LEEP PROCEDURE ) Cardiovascular Problems: No Diminished Hearing: No Endocrine: No GERD: Yes Genitourinary: No Headaches: Yes Immune Disorder: No Implanted Vascular Access Dvce: No Musculoskeletal: Yes Neurologic: Yes Psychiatric: Yes Reproductive: No Respiratory: Yes Immunizations Current: Yes Migraines: Yes Ulcer: Yes PNEUMOCCOCAL Vaccine (Year): 2 ?: Not LMP: 07/18/17 Menopausal: No : 4 Para: 2 Miscarriage: 1 : 1 Ovarian Cysts: Yes Past Surgical History Section: Yes (X1) Gynecologic Surgery: Yes (LEEP done 05/2004-Cervical biopsy-2004) Oral Surgery: Yes (EXTRACTIONS 2004) Tonsillectomy: Yes Other Surgery: Yes (LEAP 2004) Family History Family Hypercholesterolemia: Yes (mother) Social History Alcohol Use: No Tobacco Use: Yes ( -04/05 PPD) Substance Use: No Allergies-Medications (Allergen,Severity, Reaction): Coded Allergies: Sulfa (Sulfonamide Antibiotics) (Unverified Allergy, Severe, ANAPHALAXIS, 07/20/17) erythromycin base (Unverified Allergy, Severe, ANAPHALAXIS, 07/20/17) ALL MYCINS levofloxacin (Unverified Allergy, Severe, HIVES, ANAPHALAXIS, 07/20/17) penicillin G (Unverified Allergy, Severe, ANAPHALAXIS, 07/20/17) ALL CILLINS vancomycin (Unverified Allergy, Severe, ANAPHALAXIS, 07/20/17) naproxen (Unverified Adverse Reaction, Severe, GI UPSET, 07/20/17) rifampin (Unverified Adverse Reaction, Intermediate, VOMITS, 07/20/17) Reported Meds & Prescriptions Reported Meds & Active Scripts Active Zofran Odt (Ondansetron Odt) 4 Mg Tab 4 Mg SL Q6HR PRN Macrobid (Nitrofurantoin Monoh/Nitrofur Macro) 100 Mg Cap 100 Mg PO BID 7 Days Nestabs One Softgel (Pnv No.111/Iron/Folate/Dha) 38 Mg Iron-1 Mg-225 Mg Capsule 1 Tab PO DAILY Zofran Odt (Ondansetron Odt) 4 Mg Tab 4 Mg SL Q6HR PRN Percocet (Oxycodone-Acetaminophen) 10-325 mg Tab 1 Tab PO Q4H PRN Reported Zofran (Ondansetron HCl) 8 Mg Tab 8 Mg PO Q6HR PRN Review of Systems Except as stated in HPI: all other systems reviewed are Neg General / Constitutional: No: Fever Cardiovascular: No: Chest Pain or Discomfort Respiratory: No: Shortness of Breath Gastrointestinal: Positive: Nausea, Abdominal Pain, No: Vomiting, Diarrhea Genitourinary: Positive: Pelvic Pain, Vaginal Bleeding (The patient is currently on her menstrual cycle), No: Urgency, Frequency, Dysuria, Hematuria, Discharge Skin: No Rash Physical Exam Narrative GENERAL: Awake, alert, 31-year-old female appears her stated age and appears to be in mild discomfort. SKIN: Focused skin assessment warm/dry. HEAD: Atraumatic. Normocephalic. EYES: Pupils equal and round. No scleral icterus. No injection or drainage. ENT: No nasal bleeding or discharge. Mucous membranes pink and moist. NECK: Trachea midline. No JVD. CARDIOVASCULAR: Regular rate and rhythm. No murmur appreciated. Heart rate in the 90s. RESPIRATORY: No accessory muscle use. Clear to auscultation. Breath sounds equal bilaterally. GASTROINTESTINAL: Abdomen soft, obese, tender to palpation right lower quadrant. No guarding or rigidity. Back: No CVA tenderness. MUSCULOSKELETAL: No obvious deformities. No clubbing. No cyanosis. No edema. NEUROLOGICAL: Awake and alert. No obvious cranial nerve deficits. Motor grossly within normal limits. Normal speech. PSYCHIATRIC: Appropriate mood and affect; insight and judgment normal. Data Data Last Documented VS Vital Signs Date Time Temp Pulse Resp B/P (MAP) Pulse Ox O2 Delivery O2 Flow Rate FiO2 07/20/17 23:07 98.2 77 16 110/68 (82) 100 Room Air Orders Orders Complete Blood Count With Diff (07/20/17 21:31) Comprehensive Metabolic Panel (07/20/17 21:31) Urinalysis - C+S If Indicated (07/20/17 21:31) Ct Abd/Pel W/O Iv Contrast (07/20/17 21:31) Iv Access Insert/Monitor (07/20/17 21:31) Ecg Monitoring (07/20/17 21:31) Oximetry (07/20/17 21:31) Morphine Inj (Morphine Inj) (07/20/17 21:45) Ondansetron Inj (Zofran Inj) (07/20/17 21:45) Sodium Chlor 0.9% 1000 Ml Inj (Ns 1000 M (07/20/17 21:31) Sodium Chloride 0.9% Flush (Ns Flush) (07/20/17 21:45) Ketorolac Inj (Toradol Inj) (07/20/17 21:45) Ed Urine Pregnancytest Poc (07/20/17 21:31) Us Pelvis Comp W Doppler (07/20/17 ) Labs Laboratory Tests Test 07/20/17 21:33 White Blood Count 9.3 TH/MM3 Red Blood Count 4.98 MIL/MM3 Hemoglobin 9.9 GM/DL Hematocrit 32.5 % Mean Corpuscular Volume 65.2 FL Mean Corpuscular Hemoglobin 19.9 PG Mean Corpuscular Hemoglobin Concent 30.5 % Red Cell Distribution Width 16.2 % Platelet Count 418 TH/MM3 Mean Platelet Volume 8.1 FL Neutrophils (%) (Auto) 50.1 % Lymphocytes (%) (Auto) 41.9 % Monocytes (%) (Auto) 6.2 % Eosinophils (%) (Auto) 0.6 % Basophils (%) (Auto) 1.2 % Neutrophils # (Auto) 4.6 TH/MM3 Lymphocytes # (Auto) 3.9 TH/MM3 Monocytes # (Auto) 0.6 TH/MM3 Eosinophils # (Auto) 0.1 TH/MM3 Basophils # (Auto) 0.1 TH/MM3 CBC Comment AUTO DIFF Differential Comment AUTO DIFF CONFIRMED Platelet Estimate NORMAL Platelet Morphology Comment NORMAL Ovalocytes 2+ Urine Color YELLOW Urine Turbidity CLEAR Urine pH 5.5 Urine Specific [place] LESS/EQUAL 1.005 Urine Protein NEG mg/dL Urine Glucose (UA) NEG mg/dL Urine Ketones NEG mg/dL Urine Occult Blood TRACE Urine Nitrite NEG Urine Bilirubin NEG Urine Urobilinogen 0.2 MG/DL Urine Leukocyte Esterase NEG Urine RBC 3-5 /hpf Urine WBC 0-2 /hpf Urine Squamous Epithelial Cells 0-5 /hpf Urine Bacteria NONE /hpf Microscopic Urinalysis Comment CULT NOT INDICATED Blood Urea Nitrogen 7 MG/DL Creatinine 0.76 MG/DL Random Glucose 79 MG/DL Total Protein 8.0 GM/DL Albumin 3.8 GM/DL Calcium Level 8.9 MG/DL Alkaline Phosphatase 105 U/L Aspartate Amino Transf (AST/SGOT) 13 U/L Alanine Aminotransferase (ALT/SGPT) 17 U/L Total Bilirubin 0.2 MG/DL Sodium Level 140 MEQ/L Potassium Level 3.8 MEQ/L Chloride Level 107 MEQ/L Carbon Dioxide Level 26.6 MEQ/L Anion Gap 6 MEQ/L Estimat Glomerular Filtration Rate 89 ML/MIN MDM Medical Decision Making Medical Screen Exam Complete: Yes Emergency Medical Condition: Yes Medical Record Reviewed: Yes Interpretation(s) Last Impressions Abdomen/Pelvis CT 07/20/172130 Signed Impressions: Service Date/Time: Thursday, July 20, 2017 22:14 - CONCLUSION: No acute CT findings in the abdomen or pelvis. Stewart Negron MD Laboratory Tests Test 07/20/17 21:33 White Blood Count 9.3 TH/MM3 Red Blood Count 4.98 MIL/MM3 Hemoglobin 9.9 GM/DL Hematocrit 32.5 % Mean Corpuscular Volume 65.2 FL Mean Corpuscular Hemoglobin 19.9 PG Mean Corpuscular Hemoglobin Concent 30.5 % Red Cell Distribution Width 16.2 % Platelet Count 418 TH/MM3 Mean Platelet Volume 8.1 FL Neutrophils (%) (Auto) 50.1 % Lymphocytes (%) (Auto) 41.9 % Monocytes (%) (Auto) 6.2 % Eosinophils (%) (Auto) 0.6 % Basophils (%) (Auto) 1.2 % Neutrophils # (Auto) 4.6 TH/MM3 Lymphocytes # (Auto) 3.9 TH/MM3 Monocytes # (Auto) 0.6 TH/MM3 Eosinophils # (Auto) 0.1 TH/MM3 Basophils # (Auto) 0.1 TH/MM3 CBC Comment AUTO DIFF Differential Comment AUTO DIFF CONFIRMED Platelet Estimate NORMAL Platelet Morphology Comment NORMAL Ovalocytes 2+ Urine Color YELLOW Urine Turbidity CLEAR Urine pH 5.5 Urine Specific [place] LESS/EQUAL 1.005 Urine Protein NEG mg/dL Urine Glucose (UA) NEG mg/dL Urine Ketones NEG mg/dL Urine Occult Blood TRACE Urine Nitrite NEG Urine Bilirubin NEG Urine Urobilinogen 0.2 MG/DL Urine Leukocyte Esterase NEG Urine RBC 3-5 /hpf Urine WBC 0-2 /hpf Urine Squamous Epithelial Cells 0-5 /hpf Urine Bacteria NONE /hpf Microscopic Urinalysis Comment CULT NOT INDICATED Blood Urea Nitrogen 7 MG/DL Creatinine 0.76 MG/DL Random Glucose 79 MG/DL Total Protein 8.0 GM/DL Albumin 3.8 GM/DL Calcium Level 8.9 MG/DL Alkaline Phosphatase 105 U/L Aspartate Amino Transf (AST/SGOT) 13 U/L Alanine Aminotransferase (ALT/SGPT) 17 U/L Total Bilirubin 0.2 MG/DL Sodium Level 140 MEQ/L Potassium Level 3.8 MEQ/L Chloride Level 107 MEQ/L Carbon Dioxide Level 26.6 MEQ/L Anion Gap 6 MEQ/L Estimat Glomerular Filtration Rate 89 ML/MIN Ultrasound of the pelvis complete with Doppler reveals subcentimeter follicles bilateral, blood flow demonstrated. Normal pelvic ultrasound. Differential Diagnosis Differential diagnosis includes ovarian torsion, ovarian cyst, appendicitis, PID , nephrolithiasis, UTI, ectopic . Narrative Course IV was established, labs were drawn and sent, the patient was placed on cardiac telemetry monitoring and continuous pulse oximetry monitoring. The patient was administered morphine, Toradol, Zofran, and IV fluids. Ultrasound was ordered to rule out torsion. CT of the abdomen and pelvis was ordered to rule out appendicitis. UA was sent to lab, bedside UA test was negative. Patient has mild anemia with a hemoglobin of 9.9, MCV is 65.2, may be iron deficiency related anemia. CMP is unremarkable. CT the abdomen and pelvis is unremarkable, no evidence of appendicitis or nephrolithiasis. Ultrasound of the pelvis with Doppler is within normal limits, bilateral blood flow demonstrated to the ovaries, subcentimeter follicles. The patient is stable for outpatient follow-up with a primary physician. The patient will be discharged. Diagnosis Primary Impression: Abdominal pain Qualified Codes: R10.31 - Right lower quadrant pain Patient Instructions: General Instructions Additional Instructions: Please provide the patient a copy of her lab results, CT results, and ultrasound results at discharge. Follow-up with your primary physician. Return if symptoms worsen or progress. Med/Other Pt SpecificInfo: Prescription(s) given Scripts Hydrocodone-Acetaminophen ([place]) 5 Mg-325 Mg Tab 1 TAB PO Q6H Y for PAIN, #12 TAB 0 Refills Prov: Robert Juan MD 07/20/17 Disposition: DISCHARGE HOME Condition: Stable Robert Juan MD Jul 20, 2017 21:31
[2017-07-20] MEDS ORDERED: MORPHINE SULFATE 4 MG/ML INJ IV PUSH ONE (21:45)
[2017-07-20] MEDS ORDERED: SODIUM CHLORIDE 0.9% FLUSH 10 ML FLUSH IV FLUSH PRN (21:45)
[2017-07-20] MEDS ORDERED: KETOROLAC TROMETHAMINE 30 MG/ML (IVP) VIAL IVP ONE (21:45)
[2017-07-20] MEDS ORDERED: ONDANSETRON HCL 4 MG/2 ML VIAL IVP ONE (21:45)
[2017-07-20 21:47] LABS: AUTOMATED NEUTROPHIL # 4.6 TH/MM3 (1.8-7.7); BASOPHIL # 0.1 TH/MM3 (0-0.2); BASOPHIL % 1.2 % (0.0-2.0); EOSINOPHIL # 0.1 TH/MM3 (0-0.4); EOSINOPHIL % 0.6 % (0.0-4.0); HEMATOCRIT 32.5 % (35.0-46.0); HEMOGLOBIN 9.9 GM/DL (11.6-15.3); LYMPH % 41.9 % (9.0-44.0); LYMPHOCYTE # 3.9 TH/MM3 (1.0-4.8); MEAN CELL VOLUME 65.2 FL (80.0-100.0); MEAN CORPUSCULAR HEMOGLOBIN 19.9 PG (27.0-34.0); MEAN CORPUSCULAR HGB CONC 30.5 % (32.0-36.0); MEAN PLATELET VOLUME 8.1 FL (7.0-11.0); MONO % 6.2 % (0.0-8.0); MONOCYTE # 0.6 TH/MM3 (0-0.9); NEUT % 50.1 % (16.0-70.0); PLATELET COUNT 418 TH/MM3 (150-450); RED BLOOD COUNT 4.98 MIL/MM3 (4.00-5.30); RED CELL DISTRIBUTION WIDTH 16.2 % (11.6-17.2); WHITE BLOOD COUNT 9.3 TH/MM3 (4.0-11.0)
[2017-07-20 21:54] LABS: BILIRUBIN, URINE NEG (NEG); BLOOD, URINE TRACE (NEG); CHLORIDE 107 MEQ/L (98-107); GLUCOSE,URINE NEG (NEG); KETONE, URINE NEG (NEG); NITRITE,URINE NEG (NEG); PH, URINE 5.5 (5.0-8.5); SODIUM (NA) 140 MEQ/L (136-145); URINE COLOR YELLOW (YELLW/STRAW); URINE LEUKOCYTE ESTERASE NEG (NEG)
[2017-07-20 21:58] LABS: ALBUMIN 3.8 GM/DL (3.4-5.0); BICARBONATE 26.6 MEQ/L (21.0-32.0); BLOOD UREA NITROGEN 7 MG/DL (7-18); CALCIUM 8.9 MG/DL (8.5-10.1); GLUCOSE,RANDOM 79 MG/DL (74-106)
[2017-07-20 22:01] LABS: ALT (GPT) 17 U/L (10-53); AST (GOT) 13 U/L (15-37); CREATININE 0.76 MG/DL (0.50-1.00); GLOMERULAR FILTRATION RATE 89 ML/MIN (>89)
[2017-07-20 22:03] LABS: TOTAL BILIRUBIN ADULT 0.2 MG/DL (0.2-1.0)
[2017-07-20 22:04] LABS: ALKALINE PHOSPHATASE 105 U/L (45-117); SQUAMOUS EPITHELIAL CELL URINE 0-5 /hpf (0-5); WBC, URINE 0-2 /hpf (0-5)
[2017-07-20 22:07] VITALS: BP 132/76; PULSE 77; RESP 18; O2SAT 98
[2017-07-20 22:11] LABS: OVALOCYTES 2+ (NORMAL)
--- NOTE | 2017-07-20 23:01 | RADRPT ---
EXAM DATE/TIME: 07/20/2017 22:14 [facility] COMPARISON: No previous studies available for comparison. INDICATIONS : Right lower quadrant abdomen pain. ORAL CONTRAST: No oral contrast ingested. RADIATION DOSE: 22.05 CTDIvol (mGy) MEDICAL HISTORY : Gastroesophageal reflux disease. Ovarian cysts. SURGICAL HISTORY : section. LEEP procedure. ENCOUNTER: Initial ACUITY: 3 days PAIN SCALE: 8/10 LOCATION: Right lower quadrant abdomen TECHNIQUE: Volumetric scanning of the abdomen and pelvis was performed. Using automated exposure control and ad justment of the mA and/or kV according to patient size, radiation dose was kept as low as reasonably achievable to obtain optimal diagnostic quality images. DICOM format image data is available electro nically for review and comparison. FINDINGS: LOWER LUNGS: The visualized lower lungs are clear. LIVER: Homogeneous density without lesion. There is no dilation of the biliary tree. No calcified [place] es. SPLEEN: Normal size without lesion. PANCREAS: Within normal limits. KIDNEYS: Normal in size and shape. There is no mass, stone, or hydronephrosis. ADRENAL GLANDS: Within normal limits. VASCULAR: There is no aortic aneurysm. BOWEL/MESENTERY: The stomach, small bowel, and colon demonstrate no acute abnormality. There is no free intraperitone al air or fluid. ABDOMINAL WALL: Within normal limits. RETROPERITONEUM: There is no lymphadenopathy. BLADDER: No wall thickening or mass. REPRODUCTIVE: Within normal limits. INGUINAL: There is no lymphadenopathy or hernia. MUSCULOSKELETAL: Within normal limits for patient age. CONCLUSION: No acute CT findings in the abdomen or pelvis. Stewart Negron MD on July 20, 2017 at 22:57 Board Certified Radiologist. This report was verified electronically.
[2017-07-20 23:07] VITALS: BP 110/68; PULSE 77; RESP 16; TEMP 98.2; O2SAT 100
--- NOTE | 2017-07-20 23:22 | RADRPT ---
EXAM DATE/TIME: 07/20/2017 22:48 [place] COMPARISON: US PELVIS ([facility] P[facility]/ECTOPIC) W/TRANSVAG, April 17, 2017, 17:48. INDICATIONS : Pelvic pain. MEDICAL HISTORY : Gastroesophageal reflux disease. . Migraines. Asthma. Ulcer. Ovarian cysts. Miscarriage x 1. x 1. Depression. Anxiety. PTSD. SURGICAL HISTORY : Tympanostomy tubes. Tonsillectomy. section. LEEP. Cervical biopsy. ENCOUNTER: Subsequent ACUITY: 1 day PAIN SCORE: 3/10 LOCATION: Bilateral pelvis MEASUREMENTS: UTERUS: 9.1 x 5.8 x 3.9 cm ENDOMETRIAL STRIPE: 6 mm RIGHT OVARY: 3.7 x 2.9 x 2.3 cm LEFT OVARY: 2.7 x 2.2 x 1.6 cm FINDINGS: UTERUS: The myometrium has homogeneous echotexture without mass. RIGHT OVARY: Subcentimeter follicles. Blood flow demonstrated. LEFT OVARY: Subcentimeter follicles. Blood flow demonstrated. MISCELLANEOUS: No free fluid. CONCLUSION: Normal pelvic ultrasound. Stewart Francisco MD on July 20, 2017 at 23:20 Board Certified Radiologist. This report was verified electronically.
[2017-07-20] MEDS ORDERED: NORC5TAB PO (23:29)
[2017-07-21 00:12] VITALS: BP 112/68
== END 2017-07-21 00:15 | disposition home or self-care (01) ==
LOC: PHED 20:49
DX: R10.31 Right lower quadrant pain (principal); R11.0 Nausea; J45.909 Unspecified asthma, uncomplicated; F32.9 Major depressive disorder, single episode, unspecified; K21.9 Gastro-esophageal reflux disease without esophagitis; F17.200 Nicotine dependence, unspecified, uncomplicated; Z79.899 Other long term (current) drug therapy; Z88.2 Allergy status to sulfonamides; Z88.0 Allergy status to penicillin
CPT/HCPCS: 74176; 76856; 80053; 81001; 84703; 85025; 93975; 96361; 96374; 96375; 99285; J1885; J2270; J2405; J7030